=== PATIENT | male | born 1940 | race African-American/Black ===

== ENCOUNTER 2018-06-29 14:30 | Inpatient (IN) | payer MEDICARE ==
[~2018-06-29] VITALS: Ht 175.3 cm; Wt 56.4 kg
[2018-06-29] MEDS ORDERED: SODIUM CHLORIDE 0.9% 1000ML BAG (SEPSIS BOLUS) IV ONE (14:45)
[2018-06-29] MEDS ORDERED: SODIUM CHLORIDE 0.9% 1,000 ML IV ONE (14:45)
[2018-06-29 15:53] LABS: INR 1.1; PROTHROMBIN TIME 10.6 sec (9.1-11.1)
[2018-06-29 15:54] LABS: BASOPHILS % 0.3 % (0.0-2.0); CHLORIDE 108 mEq/L (98-107); HEMATOCRIT. 26.7 % (42.0-52.0); HEMOGLOBIN. 8.8 g/dL (14.0-18.0); LYMPHOCYTES % 17.4 % (20.0-50.0); MEAN CORPUSCULAR HEMOGLOBIN 29.8 pg (28.0-32.0); MEAN CORPUSCULAR VOLUME 90.8 fL (80.0-94.0); MEAN PLATELET VOLUME 8.1 fl (7.4-10.4); MONOCYTES % 6.1 % (2.0-8.0); NEUTROPHILS % 75.2 % (40.0-76.0); PLATELET 195 x1000/uL (130-400); RED BLOOD CELL COUNT 2.94 mill/uL (4.7-6.1); RED CELL DISTRIBUTION WIDTH 17.1 % (11.6-14.6)
[2018-06-29] MEDS ORDERED: PIPERACILLIN/TAZ 3.375G PREMIX 50 ML IV ONE (16:15)
[2018-06-29] MEDS ORDERED: VANCOMYCIN 1 G PREMIX 200 ML IV ONE (16:15)
[2018-06-29] MEDS ORDERED: ONDANSETRON HCL 4MG/2ML INJ IV ONE (16:15)
[2018-06-29] MEDS ORDERED: PANTOPRAZOLE SODIUM 40 MG/VIAL IV STA (16:23)
[2018-06-29] MEDS ORDERED: IPRATROPIUM/ALBUTEROL 0.5-3(2.5)MG/3ML NEB INH PRN (17:15)
[2018-06-29] MEDS ORDERED: MAGNESIUM/ALUMINUM HYDROXIDE/SIMETHICONE 30ML UDC PO PRN (17:15)
[2018-06-29] MEDS ORDERED: ACETAMINOPHEN 325MG TABLET PO PRN (17:15)
[2018-06-29] MEDS ORDERED: DOCUSATE SODIUM 100MG CAPSULE PO PRN (17:15)
[2018-06-29] MEDS ORDERED: TRAMADOL 50MG TABLET PO PRN (17:15)
[2018-06-29] MEDS ORDERED: NITROGLYCERIN 0.4MG TABLET SL SL PRN (17:15)
[2018-06-29] MEDS ORDERED: ONDANSETRON HCL 4MG/2ML INJ IV PRN (17:15)
[2018-06-29] MEDS ORDERED: CLONIDINE 0.1MG TABLET PO PRN (17:15)
[2018-06-29 17:54] LABS: CLARITY URINE CLEAR (CLEAR); COLOR URINE YELLOW (YELLOW); KETONES URINE NEGATIVE (NEGATIVE); LEUKOCYTE ESTERASE URINE 1+ (NEGATIVE); NITRITE URINE NEGATIVE (NEGATIVE); OCCULT BLOOD URINE NEGATIVE (NEGATIVE); PH URINE 5.5 (4.5-8.0); PROTEIN URINE NEGATIVE (NEGATIVE); SPECIFIC GRAVITY URINE 1.016 (1.005-1.030); UROBILINOGEN URINE 0.2 E.U./dL (0.2-1.0)
[2018-06-29 19:20] VITALS: BP 126/54
[2018-06-29 20:00] VITALS: BP 118/66
[2018-06-29] MEDS ORDERED: PANTOPRAZOLE 80 MG in SODIUM CHLORIDE 0.9% 100 ML IV SCH (20:00)
[2018-06-29] MEDS ORDERED: KCL 20MEQ/100ML PREMIX 100 ML IV NR (21:00)
[2018-06-29] MEDS ORDERED: CEFTRIAXONE 1 G PREMIX 50 ML IV SCH (21:00)
[2018-06-29] MEDS ORDERED: NA PHOS,M-B/NA PHOS,DI-BA ENEMA 118ML PR PRN (21:00)
[2018-06-29] MEDS ORDERED: ZOLPIDEM TARTRATE 5MG TABLET PO PRN (21:00)
[2018-06-29] MEDS: PANTOPRAZOLE 80 MG in SODIUM CHLORIDE 0.9% 100 ML IV SCH (21:33)
[2018-06-29] MEDS: DEXT 5%/0.45% NACL 1000ML 1,000 ML IV SCH (21:33)
[2018-06-29 22:00] VITALS: BP 158/67
[2018-06-29] MEDS ORDERED: LEVOFLOXACIN 500MG PREMIX 100 ML IV SCH (22:00)
[2018-06-30] VITALS: BP 132/54
[2018-06-30 02:00] VITALS: BP 117/53
[2018-06-30] MEDS: LEVOFLOXACIN 500MG PREMIX 100 ML IV SCH (03:02)
[2018-06-30 04:00] VITALS: BP 104/54
[2018-06-30 06:00] VITALS: BP 108/54
[2018-06-30] MEDS: MORPHINE SULFATE 4 MG/ML CPJ (NOT FOR IM USE) IV PRN ×2 (10:11→17:25)
[2018-06-30] MEDS: DEXT 5%/0.45% NACL 1000ML 1,000 ML IV SCH ×3 (10:19→23:12)
[2018-06-30] MEDS: PANTOPRAZOLE 80 MG in SODIUM CHLORIDE 0.9% 100 ML IV SCH (11:23)
[2018-06-30 15:31] LABS: BASOPHILS % 1.4 % (0.0-2.0); EOSINOPHILS % 2.2 % (0.0-5.0); HEMATOCRIT. 23.8 % (42.0-52.0); HEMOGLOBIN. 7.8 g/dL (14.0-18.0); LYMPHOCYTES % 22.9 % (20.0-50.0); MEAN CORPUSCULAR HEMOGLOBIN 29.7 pg (28.0-32.0); MEAN PLATELET VOLUME 8.3 fl (7.4-10.4); MONOCYTES % 7.3 % (2.0-8.0); NEUTROPHILS % 66.2 % (40.0-76.0); PLATELET 167 x1000/uL (130-400); RED BLOOD CELL COUNT 2.64 mill/uL (4.7-6.1); RED CELL DISTRIBUTION WIDTH 17.2 % (11.6-14.6)
[2018-06-30 15:51] LABS: CHLORIDE 111 mEq/L (98-107)
[2018-06-30 20:00] VITALS: BP 129/61
[2018-06-30] MEDS: PANTOPRAZOLE SODIUM 40 MG/VIAL IV SCH (20:50)
[2018-06-30 22:00] VITALS: BP 111/58
[2018-06-30] MEDS: CEFTRIAXONE 1 G PREMIX 50 ML IV SCH (23:12)
[2018-07-01] VITALS (17 sets, daily range): BP systolic 105–146; BP diastolic 55–69
[2018-07-01] MEDS: LEVOFLOXACIN 500MG PREMIX 100 ML IV SCH (02:40)
[2018-07-01 07:07] LABS: BASOPHILS % 0.7 % (0.0-2.0); EOSINOPHILS % 2.7 % (0.0-5.0); HEMATOCRIT. 27.7 % (42.0-52.0); HEMOGLOBIN. 9.3 g/dL (14.0-18.0); LYMPHOCYTES % 24.6 % (20.0-50.0); MEAN CORPUSCULAR HEMOGLOBIN 29.4 pg (28.0-32.0); MEAN CORPUSCULAR VOLUME 87.9 fL (80.0-94.0); MEAN PLATELET VOLUME 8.3 fl (7.4-10.4); MONOCYTES % 7.8 % (2.0-8.0); NEUTROPHILS % 64.2 % (40.0-76.0); PLATELET 172 x1000/uL (130-400); RED BLOOD CELL COUNT 3.16 mill/uL (4.7-6.1); RED CELL DISTRIBUTION WIDTH 17.4 % (11.6-14.6)
[2018-07-01 07:12] LABS: INR 1.1; PARTIAL THROMBOPLASTIN TIME 28.7 sec (23.4-31.0); PROTHROMBIN TIME 10.7 sec (9.1-11.1)
[2018-07-01 07:58] LABS: CHLORIDE 111 mEq/L (98-107)
[2018-07-01 08:05] LABS: TOTAL IRON BINDING CAPACITY 222 ug/dL (250-450)
[2018-07-01] MEDS: PANTOPRAZOLE SODIUM 40 MG/VIAL IV SCH ×2 (09:00→20:35)
[2018-07-01] MEDS: DEXT 5%/0.45% NACL 1000ML 1,000 ML IV SCH ×2 (11:30→23:05)
[2018-07-01 11:38] LABS: FOLIC ACID (FOLATE) SERUM 3.7 ng/mL (>5.38)
[2018-07-01] MEDS ORDERED: SODIUM CHLORIDE 0.9% 10ML VIAL ONE (14:56)
[2018-07-01] MEDS ORDERED: MIDAZOLAM HCL 5 MG/5 ML VIAL IV PRN (17:23)
[2018-07-01] MEDS ORDERED: FENTANYL CITRATE/PF 50MCG/ML 2ML VIAL IV PRN (17:24)
[2018-07-01] MEDS ORDERED: MIDAZOLAM HCL 5 MG/5 ML VIAL ONE (17:28)
[2018-07-01] MEDS ORDERED: FENTANYL CITRATE/PF 50MCG/ML 2ML VIAL ONE (17:28)
[2018-07-01] MEDS: CEFTRIAXONE 1 G PREMIX 50 ML IV SCH (23:05)
[2018-07-02] VITALS (10 sets, daily range): BP systolic 129–172; BP diastolic 63–93
[2018-07-02] MEDS: LEVOFLOXACIN 500MG PREMIX 100 ML IV SCH (01:00)
[2018-07-02] MEDS: DEXT 5%/0.45% NACL 1000ML 1,000 ML IV SCH (06:47)
[2018-07-02] MEDS: PANTOPRAZOLE SODIUM 40 MG/VIAL IV SCH (08:56)
[2018-07-02] MEDS ORDERED: FOLIC ACID 1MG TABLET PO SCH (09:15)
== END 2018-07-02 16:20 | disposition home or self-care (01) | DRG 377 ==
LOC: ER 15:07 → 5EST 16:26 → EDBEDREQ 16:29 → SUPCPDRO 17:03 → ENRESERV 17:28 → 5EST 19:32
PROVIDERS: ADMIT Internal Medicine; ATTEND Internal Medicine
PROC: 0DB68ZX Excision of Stomach, Via Natural or Artificial Opening Endoscopic, Diagnostic (ICD-10-PCS; 2018-07-01)
PROC: 30233N1 Transfusion of Nonautologous Red Blood Cells into Peripheral Vein, Percutaneous Approach (ICD-10-PCS; principal; 2018-07-01 16:00)
DX: K29.61 Other gastritis with bleeding (principal); E43 Unspecified severe protein-calorie malnutrition; D62 Acute posthemorrhagic anemia; I69.354 Hemiplegia and hemiparesis following cerebral infarction affecting left non-dominant side; Z68.1 Body mass index [BMI] 19.9 or less, adult; E87.2 Acidosis; E87.6 Hypokalemia; I10 Essential (primary) hypertension; E83.51 Hypocalcemia; G40.909 Epilepsy, unspecified, not intractable, without status epilepticus; K44.9 Diaphragmatic hernia without obstruction or gangrene; G47.00 Insomnia, unspecified; E53.8 Deficiency of other specified B group vitamins; K59.00 Constipation, unspecified; F17.210 Nicotine dependence, cigarettes, uncomplicated; Z90.49 Acquired absence of other specified parts of digestive tract
CPT/HCPCS: 36415; 71045; 80048; 80061; 82607; 82728; 82746; 83036; 83540; 83550; 83605; 84145; 84484; 86850; 86900; 86920; 88305; 88313; 93005; 93970; 96361; 96365; 96366; 96368; 96375; 97162; 97166; 97530; 97535; 99291; A4216; C1893; C9113; J0696; J1956; J2250; J2270; J2405; J2543; J3010; J3370; J3480; J7030; J7050; P9016

== ENCOUNTER 2019-03-19 16:19 | Inpatient (IN) | payer MEDICARE, MEDICAID, OTHER ==
[~2019-03-19] VITALS: Ht 175.3 cm; Wt 56.2 kg
[2019-03-19] MEDS ORDERED: SODIUM CHLORIDE 0.9% 1,000 ML IV ONE (16:35)
[2019-03-19 17:52] LABS: BASOPHILS % 0.4 % (0.0-2.0); EOSINOPHILS % 1.5 % (0.0-5.0); HEMATOCRIT. 35.2 % (42.0-52.0); HEMOGLOBIN. 11.2 g/dL (14.0-18.0); LYMPHOCYTES % 9.7 % (20.0-50.0); MEAN CORPUSCULAR HEMOGLOBIN 29.2 pg (28.0-32.0); MEAN CORPUSCULAR VOLUME 91.8 fL (80.0-94.0); MONOCYTES % 5.1 % (2.0-8.0); NEUTROPHILS % 83.3 % (40.0-76.0); PLATELET 136 x1000/uL (130-400); RED BLOOD CELL COUNT 3.83 mill/uL (4.7-6.1); RED CELL DISTRIBUTION WIDTH 17.3 % (11.6-14.6)
[2019-03-19 17:54] LABS: CHLORIDE 117 mEq/L (98-107)
[2019-03-19 19:00] LABS: CLARITY URINE CLEAR (CLEAR); COLOR URINE YELLOW (YELLOW); KETONES URINE NEGATIVE (NEGATIVE); LEUKOCYTE ESTERASE URINE 1+ (NEGATIVE); NITRITE URINE NEGATIVE (NEGATIVE); OCCULT BLOOD URINE NEGATIVE (NEGATIVE); PROTEIN URINE NEGATIVE (NEGATIVE); SPECIFIC GRAVITY URINE 1.015 (1.005-1.030)
[2019-03-19] MEDS ORDERED: IPRATROPIUM/ALBUTEROL 0.5-3(2.5)MG/3ML NEB INH PRN (22:15)
[2019-03-19] MEDS ORDERED: ONDANSETRON HCL 4MG/2ML INJ IV PRN (22:15)
[2019-03-19] MEDS ORDERED: DIPHENHYDRAMINE 50MG/ML VIAL IV PRN (22:15)
[2019-03-19] MEDS ORDERED: CLONIDINE 0.1MG TABLET PO PRN (22:15)
[2019-03-19] MEDS ORDERED: ACETAMINOPHEN 325MG TABLET PO PRN (22:15)
[2019-03-19] MEDS ORDERED: GUAIFENESIN 200MG/10ML SUGAR FREE UDC PO PRN (22:15)
[2019-03-19] MEDS ORDERED: MAGNESIUM/ALUMINUM HYDROXIDE/SIMETHICONE 30ML UDC PO PRN (22:15)
[2019-03-19 22:17] VITALS: BP 155/71
[2019-03-19] MEDS: DEXT 5%/0.45% NACL 1000ML 1,000 ML IV SCH (23:31)
[2019-03-20] VITALS (9 sets, daily range): BP systolic 110–144; BP diastolic 55–72
[2019-03-20 05:52] LABS: CHLORIDE 115 mEq/L (98-107)
[2019-03-20 06:02] LABS: LDL CHOLESTEROL 51 mg/dL (5-100)
[2019-03-20 06:09] LABS: HDL CHOLESTEROL 36 mg/dL (40-59)
[2019-03-20 06:28] LABS: BASOPHILS % 0.4 % (0.0-2.0); EOSINOPHILS % 1.7 % (0.0-5.0); HEMATOCRIT. 31.2 % (42.0-52.0); HEMOGLOBIN. 10.2 g/dL (14.0-18.0); LYMPHOCYTES % 16.5 % (20.0-50.0); MEAN CORPUSCULAR HEMOGLOBIN 29.5 pg (28.0-32.0); MEAN CORPUSCULAR VOLUME 90.2 fL (80.0-94.0); MEAN PLATELET VOLUME 8.4 fl (7.4-10.4); MONOCYTES % 5.5 % (2.0-8.0); NEUTROPHILS % 75.9 % (40.0-76.0); PLATELET 137 x1000/uL (130-400); RED BLOOD CELL COUNT 3.46 mill/uL (4.7-6.1); RED CELL DISTRIBUTION WIDTH 16.8 % (11.6-14.6)
[2019-03-20] MEDS: ENOXAPARIN 40MG/0.4ML SYR SUBCUT SCH (09:00)
[2019-03-20] MEDS: ASPIRIN 81MG EC TABLET PO SCH (09:00)
[2019-03-20] MEDS: DEXT 5%/0.45% NACL 1000ML 1,000 ML IV SCH (09:30)
[2019-03-20] MEDS ORDERED: METO25TA6 PO (09:58)
[2019-03-20] MEDS ORDERED: HYDR25TA MT (09:58)
[2019-03-20] MEDS ORDERED: AMLO10TA4 PO (09:58)
[2019-03-20] MEDS ORDERED: PANT40TA4 PO (09:58)
[2019-03-20] MEDS ORDERED: ALLO300T2 MT (09:58)
[2019-03-20] MEDS ORDERED: LOSA-20 MT (09:58)
[2019-03-20] MEDS ORDERED: ATOR-2 PO (09:58)
[2019-03-20] MEDS ORDERED: POTASSIUM CHLORIDE 20MEQ/PACKET PO SCH ×2 (10:30→17:00)
[2019-03-21] VITALS: BP 133/58
[2019-03-21 04:00] VITALS: BP 136/57
[2019-03-21] MEDS: DEXT 5%/0.45% NACL 1000ML 1,000 ML IV SCH ×3 (06:25→16:30)
[2019-03-21 07:27] LABS: CHLORIDE 115 mEq/L (98-107)
[2019-03-21 08:00] VITALS: BP 139/62
[2019-03-21] MEDS: ASPIRIN 81MG EC TABLET PO SCH (08:22)
[2019-03-21] MEDS: ENOXAPARIN 40MG/0.4ML SYR SUBCUT SCH (08:22)
[2019-03-21 12:00] VITALS: BP 140/66
[2019-03-21 16:45] VITALS: BP 141/63
[2019-03-21 17:05] VITALS: BP 117/63
== END 2019-03-21 18:00 | disposition home health service (06) | DRG 682 ==
LOC: ER 16:19 → 8WST 19:10 → EDBEDREQ 19:12 → ENRESERV 21:39
PROVIDERS: ADMIT Internal Medicine; ATTEND Internal Medicine
DX: N17.9 Acute kidney failure, unspecified (principal); G93.41 Metabolic encephalopathy; N39.0 Urinary tract infection, site not specified; I69.354 Hemiplegia and hemiparesis following cerebral infarction affecting left non-dominant side; E87.0 Hyperosmolality and hypernatremia; E86.0 Dehydration; E78.00 Pure hypercholesterolemia, unspecified; F17.200 Nicotine dependence, unspecified, uncomplicated; I25.10 Atherosclerotic heart disease of native coronary artery without angina pectoris; I50.9 Heart failure, unspecified; I11.0 Hypertensive heart disease with heart failure; Z82.49 Family history of ischemic heart disease and other diseases of the circulatory system
CPT/HCPCS: 36415; 70551; 71045; 80048; 80061; 83880; 84484; 93005; 93880; 96360; 96361; 97116; 97162; 99285; J1650; J7030